=== PATIENT | female | born 1930 | race Caucasian/White ===

== ENCOUNTER 2018-03-20 14:03 | Emergency (ER) | payer MEDICARE, BC ==
[~2018-03-20] VITALS: Ht 157.5 cm; Wt 46.8 kg
[2018-03-20 14:03] VITALS: Ht 157.5 cm; Wt 46.8 kg
[2018-03-20] MEDS ORDERED: ARICEPT10 MG PO (14:27)
[2018-03-20] MEDS ORDERED: HYDROCODON-ACE1 EAC7 PO (14:28)
[2018-03-20] MEDS ORDERED: VOLTAREN100 GM (14:28)
[2018-03-20] MEDS ORDERED: CARDIZEM120 MG PO (14:28)
[2018-03-20] MEDS ORDERED: OMEPRAZOLE20 M1 PO (14:28)
[2018-03-20] MEDS ORDERED: OXYBUTYNIN15 MG/BOTT PO (14:29)
[2018-03-20] MEDS ORDERED: PRAVACHOL40 MG PO (14:29)
[2018-03-20 16:03] LABS: APPEARANCE SL CLDY (CLEAR); BILIRUBIN NEGATIVE (NEGATIVE); COLOR YELLOW (YELLOW); GLUCOSE NEGATIVE (NEGATIVE); KETONE NEGATIVE (NEGATIVE); NITRITE POSITIVE (NEGATIVE); PROTEIN NEGATIVE (NEGATIVE); SPECIFIC GRAVITY 1.005 (1.005-1.020); UROBILINOGEN NORMAL (NORMAL)
[2018-03-20 16:05] LABS: RED CELLS - URINE 0-5 /hpf (0-5)
[2018-03-20 16:06] LABS: BACTERIA MANY /hpf (NONE SEEN); EPITHELIAL CELLS 0-5 /hpf (0-5)
[2018-03-20] MEDS ORDERED: VOLTAREN75 MG PO (16:29)
[2018-03-20 16:54] VITALS: BP 135/67
== END 2018-03-20 16:54 | disposition home or self-care (01) ==
LOC: D.ER 14:03
PROVIDERS: Family Medicine
DX: M54.5 Low back pain (principal); M79.1 Myalgia; W19.XXXA Unspecified fall, initial encounter; Y93.89 Activity, other specified; Y92.019 Unspecified place in single-family (private) house as the place of occurrence of the external cause